=== PATIENT | female | born 1960 | race Caucasian/White ===

== ENCOUNTER 2018-02-05 09:50 | Outpatient (CLI) | payer BC | END 2018-02-05 18:22 | disposition home or self-care (01) | LOC: MERGE 09:50 → SUS 09:50 | PROVIDERS: ATTEND Internal Medicine | DX: Z12.31 Encounter for screening mammogram for malignant neoplasm of breast (principal); R92.8 Other abnormal and inconclusive findings on diagnostic imaging of breast | CPT/HCPCS: 76641; 77067 ==

== ENCOUNTER 2019-05-17 11:55 | Outpatient (CLI) | payer BC | END 2019-05-17 20:53 | disposition home or self-care (01) | LOC: SMA 11:55 | PROVIDERS: ATTEND Internal Medicine | DX: Z12.31 Encounter for screening mammogram for malignant neoplasm of breast (principal); E03.9 Hypothyroidism, unspecified | CPT/HCPCS: 76536-TC; 77067 ==

== ENCOUNTER 2021-05-27 15:03 | Emergency (ER) | payer BC ==
[~2021-05-27] VITALS: Ht 165.1 cm; Wt 81.6 kg
--- NOTE | 2021-05-27 15:08 | NUR ---
Placed in room 2 . Placed on general ledger bookkeeper, blood pressure machine and pulse oximeter. To gown for exam. Side rails up. Report given to SUNIL Greenfield.
[2021-05-27 15:09] VITALS: BP_SYST 148
--- NOTE | 2021-05-27 15:10 | NUR ---
Patient brought from home ambulatory AOx4 complaining of left sided chest pain dull pressure like radiating to left arm with numbness and tingling starting today at 0200 while sleeping with mild shortness of breath. Pain 6/10. Respirations now even speaking full sentences. No other complaints/ injuries per patient or as noted.
--- NOTE | 2021-05-27 15:20 | NUR ---
# 20 gauge angiocath placed to RAC. Use of asceptic technique. Opsite placed over site. Blood return noted. Blood for lab drawn from site. Flushed with 10 cc of normal saline. No evidence of infiltration noted. Patient tolerated well.
--- NOTE | 2021-05-27 15:24 | NUR ---
ER Dr. SAHNI at bedside examining patient.
[2021-05-27 15:49] LABS: BASOPHILS % (AUTO) 0.5 % (0.0-2.0); EOSINOPHILS # (AUTO) 0.1 K/uL (0.0-0.4); EOSINOPHILS % (AUTO) 1.5 % (0.0-4.0); HEMOGLOBIN 13.3 g/dL (12.0-16.0); LYMPHOCYTES # (AUTO) 3.6 K/uL (1.0-5.5); LYMPHOCYTES % (AUTO) 39.4 % (20.5-51.5); MEAN CORPUSCULAR HEMOGLOBIN 30 pg (27-31); MEAN CORPUSCULAR HGB CONC 34 % (32-36); MEAN CORPUSCULAR VOLUME 89 fL (79.0-98.0); MONOCYTES # (AUTO) 0.4 K/uL (0.0-1.0); MONOCYTES % (AUTO) 4.2 % (1.7-9.3); NEUTROPHILS # (AUTO) 4.9 K/uL (1.8-7.7); NEUTROPHILS % (AUTO) 54.4 % (40.0-70.0); PLATELET COUNT (AUTO) 317 K/uL (130-430); RED BLOOD CELL COUNT(AUTO) 4.38 MIL/uL (4.2-6.2); RED CELL DISTRIBUTION WIDTH 13.3 % (9.0-15.0); WHITE BLOOD COUNT (AUTO) 9.1 K/uL (4.8-10.8)
[2021-05-27 15:53] LABS: CALCIUM 9.3 mg/dL (8.4-11.0); CREATININE 0.94 mg/dL (0.55-1.30); POTASSIUM 3.7 mmol/L (3.5-5.1)
[2021-05-27 15:59] LABS: ALBUMIN 3.6 g/dL (3.4-4.8); TOTAL BILIRUBIN 0.3 mg/dL (0.0-1.0)
--- NOTE | 2021-05-27 16:44 | NUR ---
Patient transported to radiology via WC, accompanied by STAFF.
[2021-05-27] MEDS ORDERED: LIDO1ADH77 TP (18:10)
[2021-05-27] MEDS ORDERED: GABA-529 PO (18:10)
[2021-05-27 18:45] VITALS: BP_SYST 132
--- NOTE | 2021-05-27 18:45 | NUR ---
Patient given written and verbal discharge instructions and verbalizes understanding. ER MD discussed with patient the results and treatment provided. Patient in stable condition. ID arm band removed. IV catheter removed intact and dressing applied, no active bleeding. Rx of GABAPENTIN, LIDOCAINE given. Patient educated on pain management and to follow up with PMD. Pain Scale 0/10 Opportunity for questions provided and answered. Medication side effect fact sheet provided.
== END 2021-05-27 18:45 | disposition home or self-care (01) ==
LOC: SED 15:03
DX: M54.12 Radiculopathy, cervical region (principal); R07.89 Other chest pain; I10 Essential (primary) hypertension; Z79.899 Other long term (current) drug therapy
CPT/HCPCS: 36415; 71045; 72125-TC; 76376; 80053; 83880; 84484; 85025; 93005; 99285

== ENCOUNTER 2022-12-23 15:32 | Emergency (ER) | payer BC ==
[~2022-12-23] VITALS: Ht 162.6 cm; Wt 67.6 kg
[~2022-12-23 15:32] MED LIST: GABA-529 PO; LIDO1ADH77 TP
[2022-12-23 15:46] VITALS: BP_SYST 160
--- NOTE | 2022-12-23 16:12 | NUR ---
Pt bib self from home. Chief complaint cough with chest wall pain. Pt states completion of Keflex RX as obtained from [facility] urgent care last week. Pt states unable to rest with constant coughing. Pt is aaox3, complains of sob upon exertion. Cap return less than 3 seconds, skin is warm and pink. Pt completing sentences respirations even and unlabored. Eyes are LAZARA with watery lacrimal ducts.
[2022-12-23] MEDS ORDERED: guaiFENesin 200 MG/10 ML UDC PO ONE (16:30)
[2022-12-23 17:10] LABS: BASOPHILS # (AUTO) 0.1 K/uL (0.0-0.2); BASOPHILS % (AUTO) 0.5 % (0.0-2.0); EOSINOPHILS # (AUTO) 0.2 K/uL (0.0-0.4); EOSINOPHILS % (AUTO) 1.9 % (0.0-4.0); HEMATOCRIT 37.6 % (36-48); HEMOGLOBIN 12.8 g/dL (12.0-16.0); LYMPHOCYTES # (AUTO) 3.6 K/uL (1.0-5.5); MEAN CORPUSCULAR HEMOGLOBIN 31 pg (27-31); MEAN CORPUSCULAR HGB CONC 34 % (32-36); MEAN CORPUSCULAR VOLUME 90 fL (79.0-98.0); MONOCYTES # (AUTO) 0.6 K/uL (0.0-1.0); MONOCYTES % (AUTO) 5.9 % (1.7-9.3); NEUTROPHILS % (AUTO) 53.7 % (40.0-70.0); PLATELET COUNT (AUTO) 390 K/uL (130-430); RED BLOOD CELL COUNT(AUTO) 4.17 MIL/uL (4.2-6.2); RED CELL DISTRIBUTION WIDTH 13.1 % (9.0-15.0); WHITE BLOOD COUNT (AUTO) 9.3 K/uL (4.8-10.8)
[2022-12-23 17:14] LABS: CALCIUM 8.7 mg/dL (8.4-11.0); CREATININE 0.86 mg/dL (0.55-1.30)
[2022-12-23 17:19] LABS: ALBUMIN 3.4 g/dL (3.4-4.8); TOTAL BILIRUBIN 0.2 mg/dL (0.0-1.0)
[2022-12-23] MEDS ORDERED: GUAI100S14 PO (17:24)
--- NOTE | 2022-12-23 17:32 | NUR ---
COVID AND INFLUENZA SWABS COLLECTED AND SENT TO LAB.
--- NOTE | 2022-12-23 17:54 | NUR ---
ER at bedside examining patient.
--- NOTE | 2022-12-23 18:30 | NUR ---
Patient given written and verbal discharge instructions and verbalizes understanding. ER MD discussed with patient the results and treatment provided. Patient in stable condition. ID arm band removed. Opportunity for questions provided and answered. Medication side effect fact sheet provided.
[2022-12-23 19:41] VITALS: BP_SYST 160
== END 2022-12-23 19:41 | disposition home or self-care (01) ==
LOC: SED 15:32
DX: J06.9 Acute upper respiratory infection, unspecified (principal); R05.9 Cough, unspecified; J02.9 Acute pharyngitis, unspecified; R06.00 Dyspnea, unspecified; I10 Essential (primary) hypertension; Z79.899 Other long term (current) drug therapy; Z20.822 Contact with and (suspected) exposure to COVID-19
CPT/HCPCS: 36415; 71046-TC; 80053; 85025; 99284

== ENCOUNTER 2024-06-14 14:50 | Emergency (ER) | payer BC ==
[~2024-06-14] VITALS: Ht 165.1 cm; Wt 89.8 kg
[~2024-06-14 14:50] MED LIST changes: +GUAI100S14 PO
[2024-06-14 14:59] VITALS: BP_SYST 172; PULSE 78; RESP 16; TEMP 96.9; O2SAT 96
[2024-06-14] MEDS ORDERED: ONDANSETRON 4 MG ODT TAB PO ONE (15:15)
[2024-06-14] MEDS ORDERED: MORPHINE 4 MG INJ. 4 MG/ML VIAL IM ONE (15:15)
[2024-06-14] MEDS: KETOROLAC TROMETHAMINE 30 MG VIAL IM ONE (15:37)
[2024-06-14] MEDS ORDERED: TRAM50TA2 PO (16:29)
[2024-06-14] MEDS ORDERED: ACET-2634 PO (16:29)
[2024-06-14 17:03] VITALS: BP_SYST 156; PULSE 84; RESP 16; TEMP 97.3; O2SAT 96
== END 2024-06-14 17:02 | disposition home or self-care (01) ==
LOC: SED 14:50
DX: M47.22 Other spondylosis with radiculopathy, cervical region (principal); K05.5 Other periodontal diseases; R20.2 Paresthesia of skin; R07.89 Other chest pain; M25.512 Pain in left shoulder; E03.9 Hypothyroidism, unspecified; I10 Essential (primary) hypertension; Z98.890 Other specified postprocedural states; Z91.011 Allergy to milk products; Z79.899 Other long term (current) drug therapy; Z79.2 Long term (current) use of antibiotics
CPT/HCPCS: 99285; 70450; 71045; 93005; 72125; 96372; J1885; J2270; Q0162